=== PATIENT | male | born 1965 | race Caucasian/White ===

== ENCOUNTER 2019-12-18 12:07 | Emergency (ER) | payer BC ==
[2019-12-18 12:12] VITALS: BP 135/78; PULSE 110; RESP 18; TEMP 98.2
[2019-12-18] MEDS ORDERED: MORPHINE SULFATE 4 MG/ML SYRINGE IV STA (12:32)
[2019-12-18] MEDS ORDERED: KETOROLAC 30 MG/ML 1 ML VIAL IVP STA (12:32)
[2019-12-18 13:13] LABS: Basophils % (A) 0 %; Eosinophils # (A) 0.2 k/uL (0-0.7); Eosinophils % (A) 2 %; HCT 42.3 % (39.0-53.0); HGB 13.8 gm/dL (13.0-17.5); Lymphocytes # (A) 0.9 k/uL (1.0-4.8); Lymphocytes % (A) 9 %; MCH 28.3 pg (25.0-35.0); MCHC 32.6 g/dL (31.0-37.0); MCV 86.8 fL (80.0-100.0); Mean Platelet Volume 8.1; Monocytes # (A) 0.4 k/uL (0-1.0); Monocytes % (A) 3 %; Neutrophils # (A) 9.1 k/uL (1.3-7.7); Neutrophils % (A) 85 %; Platelet Count 252 k/uL (150-450); RBC 4.88 m/uL (4.30-5.90); RDW 13.7 % (11.5-15.5); WBC 10.7 k/uL (3.8-10.6)
[2019-12-18 13:21] LABS: ALT 51 U/L (4-49); AST 52 U/L (17-59); African American GFR (CKD) >90 (>60 ml/min/1.73 sqM); Albumin 4.1 g/dL (3.5-5.0); Alkaline Phosphatase 51 U/L (38-126); Anion Gap 12 mmol/L; Blood Urea Nitrogen 15 mg/dL (9-20); Calcium 9.2 mg/dL (8.4-10.2); Carbon Dioxide 24 mmol/L (22-30); Chloride 94 mmol/L (98-107); Glucose 280 mg/dL (74-99); Magnesium 1.7 mg/dL (1.6-2.3); Non-African American GFR(CKD) >90 (>60 ml/min/1.73 sqM); Partial Thromboplastin Time 23.1 sec (22.0-30.0); Potassium 4.2 mmol/L (3.5-5.1); Prothrombin Time 10.3 sec (9.0-12.0); Sodium 130 mmol/L (137-145); Total Bilirubin 0.9 mg/dL (0.2-1.3); Total Protein 7.6 g/dL (6.3-8.2)
--- NOTE | 2019-12-18 13:41 | ED ---
Back Pain HPI - General Chief Complaint: Back Pain/Injury Stated Complaint: Back pain Time Seen by Provider: 12/18/19 12:13 Source: patient, RN notes reviewed, old records reviewed Limitations: no limitations - History of Present Illness Initial Comments: Patient is a 54-year-old male presents emergency department today with progressive back pain from his lumbar spine for work that he's had some occasional weakness in his lower extremity's. He denies any saddle anesthesias or changes in urination. Reports the pain is worse with movement. He states that over the past few days the pain is so bad that it causes him to see spots and then blacked out. Patient denies any chest pain or shortness of breath. Patient reports that previously he is seen Dr. Willard in regards to his back pain. Patient states that he has not seen him in many months. He's been taking Motrin and occasional gabapentin for pain. - Related Data Previous Rx's Medication Instructions Recorded Cyclobenzaprine [Flexeril] 10 mg PO TID #12 tab 12/18/19 Dexamethasone 0.75 mg PO DAILY #12 tab 12/18/19 HYDROcodone/APAP 5-325MG [[place] 1 - 2 tab PO Q6HR PRN #12 tab 12/18/19 5-325] Allergies Allergy/AdvReac Type Severity Reaction Status Date / Time No Known Allergies Allergy Verified 12/18/19 12:12 Review of Systems ROS Statement: Those systems with pertinent positive or pertinent negative responses have been documented in the HPI. ROS Other: All systems not noted in ROS Statement are negative. Past Medical History Past Medical History: Diabetes Mellitus, Hypertension, Thyroid Disorder History of Any Multi-Drug Resistant Organisms: None Reported Past Surgical History: Back Surgery Past Psychological History: ADD/ADHD, Depression Smoking Status: Never smoker Past Alcohol Use History: None Reported Past Drug Use History: None Reported General Exam - General Exam Comments Initial Comments: 54-year-old male. Alert and oriented 3. Patient is morbidly obese. Limitations: no limitations General appearance: alert, in no apparent distress Head exam: Present: atraumatic, normocephalic, normal inspection Eye exam: Present: normal appearance, PERRL, EOMI. Absent: scleral icterus, conjunctival injection, periorbital swelling ENT exam: Present: normal exam, mucous membranes moist Neck exam: Present: normal inspection. Absent: tenderness, meningismus, lymphadenopathy Respiratory exam: Present: normal lung sounds bilaterally. Absent: respiratory distress, wheezes, rales, rhonchi, stridor Cardiovascular Exam: Present: regular rate, normal rhythm, normal heart sounds. Absent: systolic murmur, diastolic murmur, rubs, gallop, clicks GI/Abdominal exam: Present: soft, normal bowel sounds. Absent: distended, tenderness, guarding, rebound, rigid Extremities exam: Present: normal inspection, full ROM, normal capillary refill. Absent: tenderness, pedal edema, joint swelling, calf tenderness Back exam: Present: normal inspection Course Vital Signs 12/18/19 12:09 Temperature 98.2 F Pulse Rate 110 H Respiratory 18 Rate Blood Pressure 135/78 O2 Sat by Pulse 99 Oximetry Medical Decision Making - Medical Decision Making Patient is a 54 year old male with months of progressive back pain. Patient reports radiation down the legs, and denies saddle anesthesia. He mentioned with certain movements the pain is so severe that patient "Blacks out". Patient had full evaluation, including EKG and troponin which are negative. He has lumbar spine CT showing degenerative changes and likely disc herniation. PAtientinformed of these results. On reeval, patient is ambulatory to bathroom, full ROM of legs. Patient advised to follow up with PCP and ortho. Discussed strict return parameters. - Lab Data Result diagrams: 12/18/19 13:00 12/18/19 13:00 Lab Results 12/18/19 12/18/19 12/18/19 Range/Units 13:00 13:00 13:00 WBC 10.7 H (3.8-10.6) k/uL RBC 4.88 (4.30-5.90) m/uL Hgb 13.8 (13.0-17.5) gm/dL Hct 42.3 (39.0-53.0) % MCV 86.8 (80.0-100.0) fL MCH 28.3 (25.0-35.0) pg MCHC 32.6 (31.0-37.0) g/dL RDW 13.7 (11.5-15.5) % Plt Count 252 (150-450) k/uL Neutrophils % 85 % Lymphocytes % 9 % Monocytes % 3 % Eosinophils % 2 % Basophils % 0 % Neutrophils # 9.1 H (1.3-7.7) k/uL Lymphocytes # 0.9 L (1.0-4.8) k/uL Monocytes # 0.4 (0-1.0) k/uL Eosinophils # 0.2 (0-0.7) k/uL Basophils # 0.0 (0-0.2) k/uL PT 10.3 (9.0-12.0) sec INR 1.0 (<1.2) APTT 23.1 (22.0-30.0) sec Sodium 130 L (137-145) mmol/L Potassium 4.2 (3.5-5.1) mmol/L Chloride 94 L (98-107) mmol/L Carbon Dioxide 24 (22-30) mmol/L Anion Gap 12 mmol/L BUN 15 (9-20) mg/dL Creatinine 0.75 (0.66-1.25) mg/dL Est GFR (CKD-EPI)AfAm >90 (>60 ml/min/1.73 sqM) Est GFR (CKD-EPI)NonAf >90 (>60 ml/min/1.73 sqM) Glucose 280 H (74-99) mg/dL Calcium 9.2 (8.4-10.2) mg/dL Magnesium 1.7 (1.6-2.3) mg/dL Total Bilirubin 0.9 (0.2-1.3) mg/dL AST 52 (17-59) U/L ALT 51 H (4-49) U/L Alkaline Phosphatase 51 (38-126) U/L Troponin I (0.000-0.034) ng/mL Total Protein 7.6 (6.3-8.2) g/dL Albumin 4.1 (3.5-5.0) g/dL 12/18/19 Range/Units 13:00 WBC (3.8-10.6) k/uL RBC (4.30-5.90) m/uL Hgb (13.0-17.5) gm/dL Hct (39.0-53.0) % MCV (80.0-100.0) fL MCH (25.0-35.0) pg MCHC (31.0-37.0) g/dL RDW (11.5-15.5) % Plt Count (150-450) k/uL Neutrophils % % Lymphocytes % % Monocytes % % Eosinophils % % Basophils % % Neutrophils # (1.3-7.7) k/uL Lymphocytes # (1.0-4.8) k/uL Monocytes # (0-1.0) k/uL Eosinophils # (0-0.7) k/uL Basophils # (0-0.2) k/uL PT (9.0-12.0) sec INR (<1.2) APTT (22.0-30.0) sec Sodium (137-145) mmol/L Potassium (3.5-5.1) mmol/L Chloride (98-107) mmol/L Carbon Dioxide (22-30) mmol/L Anion Gap mmol/L BUN (9-20) mg/dL Creatinine (0.66-1.25) mg/dL Est GFR (CKD-EPI)AfAm (>60 ml/min/1.73 sqM) Est GFR (CKD-EPI)NonAf (>60 ml/min/1.73 sqM) Glucose (74-99) mg/dL Calcium (8.4-10.2) mg/dL Magnesium (1.6-2.3) mg/dL Total Bilirubin (0.2-1.3) mg/dL AST (17-59) U/L ALT (4-49) U/L Alkaline Phosphatase (38-126) U/L Troponin I <0.012 (0.000-0.034) ng/mL Total Protein (6.3-8.2) g/dL Albumin (3.5-5.0) g/dL 12/18/19 14:29 EKG performed at 1246 shows normal sinus rhythm with axis deviation. Septal infarct. [place] rate of 95 bpm. Was 166 ms. QS duration is 96 most seconds. QT QTC 370/464. - Radiology Data Radiology results: report reviewed Multilevel spinal canal stenosis, neural foramina narrowing ranging from mild to severe. Possible disc herniation about without BE more accurately assessed withMRI. Minimal retrolisthesis of L5 on S1 on degenerative basis . Disposition Clinical Impression: Lumbar degenerative disc disease, Lumbar disc herniation Disposition: HOME SELF-CARE Condition: Good Instructions (If sedation given, give patient instructions): Acute Low Back Pain (ED) Additional Instructions: Patient is to take the antiinflammatory medication and the pain medication as prescribed. Follow-up with the back specialist referral. Return to ED if any alarming signs or symptoms occur. Prescriptions: Dexamethasone 0.75 mg PO DAILY #12 tab Cyclobenzaprine [Flexeril] 10 mg PO TID #12 tab HYDROcodone/APAP 5-325MG [[place] 5-325] 1 - 2 tab PO Q6HR PRN #12 tab PRN Reason: Pain Is patient prescribed a controlled substance at d/c from ED?: Yes If prescribed controlled substance>3 days was MAPS reviewed?: Prescribed <3 Days If opioid is for acute pain is fill amount 7 days or less?: Yes If Rx opioid, was Start Talking consent form obtained?: Yes Referrals: Camron Spears MD [Primary Care Provider] - 1-2 days Time of Disposition: 15:27
--- NOTE | 2019-12-18 14:07 | XR ---
EXAMINATION TYPE: XR chest 2V DATE OF EXAM: 12/18/2019 COMPARISON: NONE HISTORY: Chest pain TECHNIQUE: Frontal and lateral views of the chest are obtained. FINDINGS: Markedly limited evaluation given patient body habitus despite multiple attempts. Cardiome diastinal silhouette is enlarged. Costophrenic angles are not well evaluated. No sizable pneumothorax or pleural effusion. Lateral view is nearly nondiagnostic. Osseous structures are suboptimally seen. IMPRESSION: Markedly limited exam given patient body habitus. Lateral view is nearly nondiagnostic. Enlarged cardiomediastinal silhouette with no focal consolidation seen.
--- NOTE | 2019-12-18 14:21 | CT ---
EXAMINATION TYPE: CT lumbar spine wo con DATE OF EXAM: 12/18/2019 1:53 PM COMPARISON: None HISTORY: low back pain and radiculopathy CT DLP: 3277.4 mGycm Automated exposure control for dose reduction was used. TECHNIQUE: Unenhanced CT of the lumbar spine was performed. Bone and soft tissue window settings are submitted as well as coronal and sagittal reconstructions. FINDINGS: The lumbar spine vertebral bodies maintain normal vertebral body heights. Minimal retrolist hesis of L5 on S1 is seen. Multilevel facet arthropathy, posterior osteophytes, anterior osteophytes, and intervertebral disc space narrowing are seen. Vacuum discs none at L5-S1. Hypoattenuation of the visualized hepatic parenchyma typically relates to hepatic steatosis. Only minimal amount of hepatic parenchyma is seen however. L1-L2: Right eccentric disc bulge or right foraminal disc herniation seen. This would be better evalu ated with MRI. At least mild right neural foraminal narrowing. Spinal canal is grossly patent on CT. L2-L3: Posterior projecting osteophyte is seen with a broad-based disc bulge and facet arthropathy cr eating at least mild spinal canal stenosis. There is also ligamentum flavum buckling. Moderate to sev ere right and mild left neural foraminal narrowing. L3-L4: Left foraminal disc herniation or left eccentric broad-based disc bulge creates at least moder ate left neural foraminal narrowing. There is moderate to severe right neural foraminal narrowing as well secondary to facet arthropathy. At least moderate spinal canal stenosis. L4-L5: Posterior projecting osteophyte, broad-based disc bulge, and facet arthropathy result in moder ate to severe bilateral neural foraminal narrowing and moderate spinal canal stenosis. L5-S1: Broad-based disc bulge, posterior disc osteophyte complex, and facet arthropathy result in rosalino ateral moderate to severe neural foraminal narrowing and mild spinal canal stenosis. IMPRESSION: Multilevel spinal canal stenosis, neural foraminal narrowing ranging from mild to severe, and possibl e disc herniations as detailed above without BE more accurately assessed with MRI. Minimal retrolisth esis of L5 on S1 is likely on a degenerative basis.
== END 2019-12-18 15:48 | disposition home or self-care (01) ==
LOC: EC 12:07
DX: M51.26 Other intervertebral disc displacement, lumbar region (principal); M51.36 Other intervertebral disc degeneration, lumbar region
CPT/HCPCS: 36415; 93005; 80053; 83735; 84484; 85025; 85610; 85730; 71046; 72131; 96374; 96375; 99284; J2270; J1885

== ENCOUNTER → 2020-02-16 | Outpatient (CLI) | payer BC ==
[2020-02-16 14:19] VITALS: BP 135/80; PULSE 100; RESP 18
--- NOTE | 2020-02-16 15:07 | P.PAINCN ---
History of Present Illness - Reason for Consult Consult date: 02/16/20 - History of Present Illness This is a 54-year-old patient referred by Dr. Amezcua with a chief complaint of chronic pain in bilateral low back without radiation. Patient has a history of left hemilaminectomy at L3-4 done in 1998. He was doing well after that. Since July 2019 he has noticed low back pain, which has been gradually worsening. Pain is rated as 5-9/10. Pain is located in the lumbar spine at the belt line, radiating across the lumbar paraspinal muscles bilaterally. Pain is described as constant, stabbing, throbbing. Pain is worse with standing and sitting for long periods of time, better with lying down. His medications include [place] and Flexeril, which helped take the edge off. He has mild side effects in the form of fatigue. He has had epidural steroid injections done approximately 3 years ago at [facility] which helped for a few months at a time. Of note, he does not have significant lower extremity pain. He has not had physical therapy recently. He does report weakness in the form of leg buckling and long-standing numbness in right lower extremity.. Patient denies new-onset weakness, bowel/bladder incontinence, or any other signs or symptoms of cauda equina syndrome. There are no signs of acute intoxication, and no indications of medication diversion or overuse. In addition to above, 13-point review of systems is also negative for chest pa in, shortness of breath, changes in vision, changes in hearing, new onset weakness, abdominal pain, diarrhea, extreme fatigue, malaise, fever, skin changes, homicidal or suicidal ideation, or bowel or bladder incontinence. Physical exam: Vital Signs: Reviewed in EMR GENERAL: Well appearing, in no acute distress, morbidly obese, wheelchair the side PSYCH: Mood and affect is appropriate. Awake, alert, and oriented SKIN: Skin color, texture, turgor normal, no rashes or lesions HEENT: Normocephalic, atraumatic. EOM intact CV: No pedal edema RESP: Respirations are unlabored, no audible wheezing GI: Abdomen obese MUSCULOSKELETAL: Bilateral lower extremity strength is 4/5 throughout and symmetric. No atrophy or tone abnormalities are noted. Lumbar spine: Surgical scar over her lumbar spine well healed. Straight leg raising in the sitting position is negative for radicular pain. Tenderness to palpation over the lumbar spine and paraspinous muscles bilaterally. Positive for pain with facet loading bilaterally Buttocks: No pain to palpation over the PSIS Extremities: Peripheral joint ROM is full and pain free without obvious instability or laxity in all four extremities. No edema or skin discolorations noted. Gait: Gait is slow NEUR: Reduced sensation to light touch noted in anterior aspect of right leg . Cranial nerves are grossly intact. Imaging: CT lumbar spine without contrast done at [facility] on 12/18/2019 shows multilevel spinal canal stenosis, worse at L3-4 and L4-5 and multilevel neural foraminal narrowing ranging from mild to severe. MRI lumbar spine done at [facility] on 12/29/2019 shows mild to moderate multilevel lumbar spondylosis and facet arthrosis. Postsurgical change of left hemilaminectomy at L3-4. At L1-2 there is right posterior lateral annular tear and right extraforaminal disc protrusion. At L3-4 moderate left extraforaminal disc protrusion. Moderate spinal canal stenosis at L2-3 mild to moderate spinal canal stenosis at L4-5. Moderate spinal canal stenosis at L5-S1 Assessment: 1. Lumbar spondylosis without myelopathy 2. Lumbar degenerative disc disease 3. Lumbar spinal stenosis 4. Morbid obesity, BMI 55 Plan: 1. Explanation: Diagnoses, prognoses, and multiple treatment options including but not limited to physical therapy, interventional therapies, medication management and surgery were discussed with the patient and all questions were answered to the patient's satisfaction. 2. Investigations: MRI lumbar spine reviewed 3. Counseling: The patient was counseled on the importance of weight loss as it pertains to overall health and chronic pain. He is working on losing weight. 4. Procedures: We will schedule bilateral lumbar medial branch blocks at L2, L3, L4, L5 for facets L3-4, L4-5, L5-S1 5. Consultations: None 6. Medications: No changes 7. Disposition: For above-mentioned procedure Past Medical History Past Medical History: Diabetes Mellitus, Hypertension, Thyroid Disorder Additional Past Medical History / Comment(s): chronic back pain History of Any Multi-Drug Resistant Organisms: MRSA Year Discovered:: 2009 MDRO Source:: left axilla Past Surgical History: Back Surgery Past Anesthesia/Blood Transfusion Reactions: No Reported Reaction Smoking Status: Never smoker Medications and Allergies Home Medications Medication Instructions Recorded Confirmed Type Cyclobenzaprine [Flexeril] 10 mg PO TID #12 tab 12/18/19 02/16/20 Rx HYDROcodone/APAP 5-325MG [[place] 1 - 2 tab PO Q6HR PRN #12 tab 12/18/19 02/16/20 Rx 5-325] Levothyroxine Sodium [Synthroid] 50 mcg PO DAILY 02/16/20 02/16/20 History Lisinopril-Hctz 20-12.5 mg 12.5 mg PO DAILY 02/16/20 02/16/20 History [Zestoretic 20-12.5] Methylphenidate HCl [Ritalin] 20 mg PO BID 02/16/20 02/16/20 History sitaGLIPtin [Januvia] 100 mg DAILY 02/16/20 02/16/20 History Allergies Allergy/AdvReac Type Severity Reaction Status Date / Time strawberry Allergy Rash/Hives Verified 02/13/20 15:45 PQRS Measure Charge Sheet Measure #130: Documentation of Current Meds in Medical Chart: Patient's medications documented in chart Measure #226: Tobacco Use: Screen & Cessation Intervention: Pt not a tobacco user Measure #111: Pneumonia Vaccination: Pneumococcal vaccine NOT administered or previously given Measure #47: Advance Care Plan: Advance care planning discussed & documented, pt chose/unable to give Measure #412: Opioid Treatment Agreement: No documentation of signed opioid treatment agreement Measure #408: Opioid Therapy Follow-up Evaluation: Patient had NO f/u eval minimum every 3 months during opioid therapy Measure #317: Preventitive Care & Scrn High Bld Press & F/U: Normal blood pressure, f/u not required Measure #128: Body Mass Index (BMI) Screening & Follow-up: BMI documented ABOVE normal parameters - f/u documented Measure #131: Pain Assessment & Follow-up: Pain positive & plan documented, Follow-up scheduled Measure #431: Unhealthy Alcohol Use Preventative Care & Scrn: Patient not identified as an unhealthy alcohol user PQRS Narrative: Smoking Status Never smoker Pain Intensity [Back] 5 Scale Used Numeric (1 - 10) Home Medications: Ambulatory Orders Cyclobenzaprine [Flexeril] 10 mg PO TID #12 tab 12/18/19 HYDROcodone/APAP 5-325MG [[place] 5-325] 1 - 2 tab PO Q6HR PRN #12 tab 12/18/19 Levothyroxine Sodium [Synthroid] 50 mcg PO DAILY 02/16/20 Lisinopril-Hctz 20-12.5 mg [Zestoretic 20-12.5] 12.5 mg PO DAILY 02/16/20 Methylphenidate HCl [Ritalin] 20 mg PO BID 02/16/20 sitaGLIPtin [Januvia] 100 mg DAILY 02/16/20
== END | disposition home or self-care (01) ==
LOC: PNWHC3 13:45
PROVIDERS: ATTEND Anesthesiology
DX: M48.061 Spinal stenosis, lumbar region without neurogenic claudication (principal); M47.816 Spondylosis without myelopathy or radiculopathy, lumbar region; M51.36 Other intervertebral disc degeneration, lumbar region; E66.01 Morbid (severe) obesity due to excess calories; Z68.43 Body mass index [BMI] 50.0-59.9, adult; Z79.899 Other long term (current) drug therapy; Z79.890 Hormone replacement therapy; Z79.84 Long term (current) use of oral hypoglycemic drugs; Z91.018 Allergy to other foods; I10 Essential (primary) hypertension; E07.9 Disorder of thyroid, unspecified; E11.9 Type 2 diabetes mellitus without complications; Z98.890 Other specified postprocedural states
CPT/HCPCS: 99201

== ENCOUNTER 2020-02-23 06:47 | Day surgery (SDC) | payer BC ==
[2020-02-23] MEDS ORDERED: LACTATED RINGERS 1,000 ML IV SCH (07:30)
[2020-02-23 07:32] VITALS: TEMP 97
[2020-02-23] MEDS ORDERED: LIDOCAINE 1% (10MG/ML) FOR IV START INTRADERMA ONE (07:35)
[2020-02-23] MEDS ORDERED: MIDAZOLAM 2 MG/2 ML VIAL ONE (07:49)
[2020-02-23] MEDS ORDERED: IOPAMIDOL M200 10 ML VIAL ONE (07:49)
[2020-02-23] MEDS ORDERED: LIDOCAINE 4% (PF) 5 ML AMP ONE (07:49)
[2020-02-23 07:51] LABS: Glucose,Whole Blood 217 mg/dL (75-99)
--- NOTE | 2020-02-23 08:13 | P.PCN ---
Date of Procedure: 02/23/20 Procedure(s) Performed: PREOPERATIVE DIAGNOSIS : Lumbar spondylosis with Facet Arthropathy without myelopathy POSTOPERATIVE DIAGNOSIS: same PROCEDURE: First Diagnostic lumbar medial branch block with fluoroscopy at L2, L3, L4, L5 [bilateral] which covers facets L3-4, L4-5 and L5-S1 ANESTHESIA: Local anesthetic; moderate IV sedation with Versed 1 mg, sedation time 15 minutes Fluoroscopy was used for the procedure and images were saved in the radiology portion of the chart. Surgeon: Katherine Solano MD PROCEDURE INDICATION: Lumbar back pain without radiculopathy, not responsive to conservative management. PROCEDURE DESCRIPTION: the patient was seen and identified in the preop holding area , risks and benefits and possible complications of the procedure and alternatives were discussed with the patient, and the patient agreed to proceed with the procedure and signed the consent . IV was started , vital signs were monitored during the procedure and fluoroscopy was used to maximize the benefit and accuracy of the needle placement, and sedation was given to decrease patient anxiety. Patient was taken to the procedure room and placed in prone position. The lumbar region was prepped using chlorhexidineX-2. Under strict sterile technique using AP fluoroscopy the bilateral sacral ala were identified and using ipsilateral oblique fluoroscopy ,the junction of the transverse process and the superior articulating process of the L3, L4, L5 vertebra which corresponds to the fluoroscopy image of the eye of the [place] dog for the medial branches were identified. Subsequently, after local infiltration of skin with lidocaine 1% 0.2 mL at each level , a 22-gauge 5 inch Quincke-type needle was placed at the junction of the base of the transverse process and the superior articular process at the appropriate level as well as the sacral ala, and the needle was advanced until the periosteum contacted, needle placement confirmed with AP and oblique fluoroscopy, 0.2 mL of Isovue 200 per level was injected which revealed no vascular uptake and after negative aspiration, 0.5 mL of [lidocaine 4%] was injected at each level and the needle subsequently removed . At the end of the procedure and the needles were removed and a bandage applied after the skin was cleaned. The patient was taken to recovery room in stable condition and monitors in the recovery room for 20-30 minutes and discharged home in stable condition after discharge criteria met and patient will follow up in clinic in 2 weeks EBL: Minimal COMPLICATION: None.
[2020-02-23] MEDS ORDERED: IV FLUID CONTINUATION 1,000 ML IV ONE (08:18)
[2020-02-23 08:28] VITALS: RESP 16
[2020-02-23 08:35] VITALS: BP 113/72; PULSE 81
--- NOTE | 2020-02-23 09:01 | FL ---
Fluoroscopy HISTORY: Pain 5 seconds fluoroscopy time supplied to the referring clinician. 3 intraoperative C-arm images docume nt the procedure. See dictated report from anesthesia.
== END 2020-02-23 08:44 | disposition home or self-care (01) ==
LOC: ORPAIN 06:47
PROVIDERS: ATTEND Anesthesiology
DX: G89.29 Other chronic pain (principal); M47.816 Spondylosis without myelopathy or radiculopathy, lumbar region; M51.36 Other intervertebral disc degeneration, lumbar region; M48.061 Spinal stenosis, lumbar region without neurogenic claudication; I10 Essential (primary) hypertension; E66.01 Morbid (severe) obesity due to excess calories; E11.9 Type 2 diabetes mellitus without complications; E07.9 Disorder of thyroid, unspecified; Z86.14 Personal history of Methicillin resistant Staphylococcus aureus infection; Z79.84 Long term (current) use of oral hypoglycemic drugs; Z79.890 Hormone replacement therapy; Z79.899 Other long term (current) drug therapy; Z91.018 Allergy to other foods; Z68.43 Body mass index [BMI] 50.0-59.9, adult
CPT/HCPCS: 64493; 64494; 64495; J2001; J2250; Q9966; 99152

== ENCOUNTER 2020-03-13 12:50 | Day surgery (SDC) | payer BC ==
[2020-03-08 10:03] VITALS: BMI 56.9
[2020-03-13 13:17] VITALS: TEMP 97
[2020-03-13] MEDS ORDERED: LACTATED RINGERS 1,000 ML IV ONE (13:19)
[2020-03-13] MEDS ORDERED: IOPAMIDOL M200 10 ML VIAL ONE (13:31)
[2020-03-13] MEDS ORDERED: MIDAZOLAM 2 MG/2 ML VIAL ONE (13:31)
[2020-03-13] MEDS ORDERED: ROPIVACAINE 5MG/ML 20ML VIAL ONE (13:31)
[2020-03-13] MEDS ORDERED: LIDOCAINE 1% INJ 10MG/ML (20 ML MDV) ONE (13:31)
[2020-03-13] MEDS ORDERED: LACTATED RINGERS 1,000 ML IV SCH (13:55)
[2020-03-13] MEDS ORDERED: IV FLUID CONTINUATION 800 ML IV ONE (14:01)
[2020-03-13 14:06] VITALS: RESP 16
[2020-03-13 14:20] VITALS: BP 110/61; PULSE 89
--- NOTE | 2020-03-13 14:36 | FL ---
EXAMINATION TYPE: FL guided pain mgmt statistic DATE OF EXAM: 03/13/2020 CLINICAL HISTORY: Low back pain. TECHNIQUE: Fluoroscopy. COMPARISON: None. FINDINGS: Fluoroscopic guidance was provided during pain relief procedure performed by Dr. Teresa . A total of 18 seconds of fluoroscopic time was utilized during the procedure and 3 spot images are a cquired. Images acquired shows needle localization at several levels in the lower lumbar spine. IMPRESSION: As Above.
--- NOTE | 2020-03-13 14:41 | P.PCN ---
Date of Procedure: 03/13/20 Description of Procedure: PREOPERATIVE DIAGNOSIS : Lumbar spondylosis with Facet Arthropathy without myelopathy POSTOPERATIVE DIAGNOSIS: same PROCEDURE: [first/second] Diagnostic lumbar medial branch block with fluoroscopy at L2, L3, L4, L5 [bilateral] which covers facets L3-4, L4-5 and L5- S1 ANESTHESIA: Local anesthetic; moderate IV sedation with Versed sedation time 17 min Fluoroscopy was used for the procedure and images were saved in the radiology portion of the chart. Surgeon: Alex Teresa MD PROCEDURE INDICATION: Lumbar back pain without radiculopathy, not responsive to conservative management. PROCEDURE DESCRIPTION: the patient was seen and identified in the preop holding area , risks and benefits and possible complications of the procedure and alternatives were discussed with the patient, and the patient agreed to proceed with the procedure and signed the consent . IV was started , vital signs were monitored during the procedure and fluoroscopy was used to maximize the benefit and accuracy of the needle placement, and sedation was given to decrease jenny ent anxiety. Patient was taken to the procedure room and placed in prone position. The lumbar region was prepped using chlorhexidineX-2. Under strict sterile technique using AP fluoroscopy the bilateral sacral ala were identified and using ipsilateral oblique fluoroscopy ,the junction of the transverse process and the superior articulating process of the L3 L4, L5 vertebra which corresponds to the fluoroscopy image of the eye of the [place] dog for the medial branches were identified. Subsequently, after local infiltration of skin with lidocaine 1% 0.2 mL at each level , a 22-guage 5" Quincke-type needle was placed at the junction of the base of the transverse process and the superior articular process at the appropriate level as well as the sacral ala, and the needle was advanced until the periosteum contacted, needle placement confirmed with AP and oblique fluoroscopy, 0.2 mL of Isovue 200 per level was injected which revealed no vascular uptake and after negative aspiration, 1mL of ropivacaine 0.5% was injected at each level and the needle subsequently removed . At the end of the procedure and the needles were removed and a bandage applied after the skin was cleaned. The patient was taken to recovery room in stable condition and monitors in the recovery room for 20-30 minutes and discharged home in stable condition after discharge criteria met and patient will follow up in clinic in 2 weeks EBL: Minimal COMPLICATION: None.
[2020-03-14 14:05] LABS: Glucose,Whole Blood 175 mg/dL (75-99)
== END 2020-03-13 14:25 | disposition home or self-care (01) ==
LOC: ORPAIN 12:50
PROVIDERS: ATTEND Anesthesiology
DX: M47.816 Spondylosis without myelopathy or radiculopathy, lumbar region (principal)
CPT/HCPCS: 64493; 64494; 64495; J2250; J2001; Q9966; J2795; 99152

== ENCOUNTER → 2020-03-28 | Outpatient (CLI) | payer BC ==
[2020-03-28 08:29] VITALS: BP 137/94; PULSE 103; RESP 18
[2020-03-28 08:39] VITALS: TEMP 98.9
--- NOTE | 2020-03-30 18:55 | P.PN ---
Subjective Progress Note Date: 03/28/20 This is a follow-up visit for this 55 years old male with a history of severe low back pain,he is diagnosed with lumbar degenerative disc disease, lumbar spondylosis with lumbar facet arthropathy, and failed back surgery syndrome and lumbar area, recently we have done diagnostic medial branch block lumbar area 2, the first diagnostic blockade reported that his pain was 6/10 dropped to 3/10 for short period of time, and the second diagnostic block his VAS was 5/10 and increased after the block to 7/10, patient continued to use Flexeril 10 mg 3 times a day and Holt[place] 5/325 every 6 hours when necessary is getting prescription refills from his primary care, he denies any side effect of the medication Objective - Vital Signs Vital signs: Vital Signs Temp 98.9 F 03/28/20 08:26 Pulse 103 H 03/28/20 08:26 Resp 18 03/28/20 08:26 BP 137/94 03/28/20 08:26 Pulse Ox 94 L 03/28/20 08:26 - Exam Physical Examinations : -Constitutiona : Cooperative , not in acute distress . -HEENT : nech : supple , no Lymphadenopathy , normal thyroid size . : eyes : no ptosis , no icterus, no photopho alfredo . - neurologic : Cranial nerve II to XII intact , no focal neurological deffecit . -psychatric : alert , oriented X 3 , appropriate affect , intact judgment and insight . -Lymphatic : no Lymphadenopathy . - musculoskeltal : Lumber spine moter stegnth lower extremities ,thigh and legs 4/5 Right side , 4/5 Left side Griese sensation anterior lateral aspect of right lower extremity deep tendon reflexes : normal Knee Jerk , normal ankle Jerk lumber facet Loading Test =positive Right , positive Left Range of motion of the lumbar spine Flexion 30 degrees, extension 10 degrees strait leg raising test = negative bilaterally Fabere test= positive Right , and positive LT . tenderness over the Sacroiliac joint on the Right , and Left sides Assessment and Plan Plan: Assessment and plan=1-failed back surgery syndrome number area 2-lumbar spondylosis with lumbar facet arthropathy without myelopathy. 4-lumbar degenerative disc disease. Patient had negative result after diagnostic med ial branch block lumbar areax2 , for this reason he is not taking good candidate to have RFA of the medial branch lumbar area. Patient could benefit from caudal epidural steroid injection with lysis of epidural adhesions under fluoroscopy guidance. Patient should continue his current medications Flexeril and [place] as prescribed by his primary care. - PQRS measures = - Patient's medications are documented in the chart. -Tobacco use is negative and counseling.Given. -Patient's has not received pneumococcal vaccine. -Advanced care planning discussed, patient not eligible. -Opiate contract signed. -Pain positive and follow-up visit/procedure is scheduled. -Patient's blood pressure measured , and documented in the record ,and patient will follow up with the primary care. -Patient's weight was measured and body mass index , above the normal limits and counseling was done. and patient instructed to follow-up with the primary care physician. -Patient was not identified as an unhealthy alcohol user Time with Patient: Less than 30
== END | disposition home or self-care (01) ==
LOC: PNWHC3 08:19
PROVIDERS: ATTEND Specialist
DX: G89.29 Other chronic pain (principal); M51.36 Other intervertebral disc degeneration, lumbar region; M47.816 Spondylosis without myelopathy or radiculopathy, lumbar region; M96.1 Postlaminectomy syndrome, not elsewhere classified
CPT/HCPCS: 99211

== ENCOUNTER 2020-04-10 10:00 | Day surgery (SDC) | payer BC ==
[2020-04-06 11:23] VITALS: BMI 56.1
[~2020-04-10 10:00] MED LIST: LACTATED RINGERS 1,000 ML IV SCH
[2020-04-10 10:25] VITALS: PULSE 74; RESP 16; TEMP 97.8
[2020-04-10 10:37] LABS: Glucose,Whole Blood 176 mg/dL (75-99)
[2020-04-10] MEDS ORDERED: LIDOCAINE 1% (10MG/ML) FOR IV START INTRADERMA ONE (10:37)
[2020-04-10] MEDS ORDERED: IOPAMIDOL M200 10 ML VIAL ONE (11:23)
[2020-04-10] MEDS ORDERED: ROPIVACAINE 5MG/ML 20ML VIAL ONE (11:23)
[2020-04-10] MEDS ORDERED: TRIAMCINOLONE ACETONIDE 40 MG/ML 1 ML VIAL ONE (11:23)
[2020-04-10] MEDS ORDERED: MIDAZOLAM 2 MG/2 ML VIAL ONE (11:23)
[2020-04-10] MEDS ORDERED: fentaNYL (PF) 50 MCG/ML 2 ML AMP ONE (11:23)
--- NOTE | 2020-04-10 11:50 | P.PCN ---
Date of Procedure: 04/10/20 Surgeon: Alia Guillen Pathology: none sent Condition: stable Disposition: PACU Description of Procedure: PREOP DIAGNOSIS: Lumbar postlaminectomy syndrome. Morbid obesity POSTOP DIAGNOSIS: Lumbar postlaminectomy syndrome, morbid obesity PROCEDURE: Caudal epidural steroid injection with epidurolysis and epidurogram under fluoroscopic guidance ANESTHESIA: Local with 1% lidocaine; IV moderate conscious sedation with 1 mg of Versed and 50 g of fentanyl EBL: Minimal. PROCEDURE INDICATION: The patient with post-laminectomy syndrome with low back pain and radiculopathy radiating down in both legs, here for a caudal epidural steroid injection with epidurolysis. PROCEDURE DESCRIPTION: The patient was seen in the preoperative holding area consent was obtained then he was brought into the procedure room and placed in prone position. Skin was prepped with ChloraPrep and draped in a sterile manner. Lidocaine 1% was used to numb the skin up at the target point that was chosen as follows: The lateral view of fluoroscopy was used to identify the sacral hiatus and then after localizing the skin with lidocaine 1% I used 18- gauge epidural needle with a plastic sheath to go through the sacral hiatus and into the sacral canal and then injected 1 mL of Omnipaque for verification of needle tip position. After that the metal core of the needle was taken out and the plastic sheath was kept in the sacral canal. Then Racz catheter was introduced through the plastic sheath and into the epidural space at the sacral canal using the AP view of fluoroscopy up to L5-S1 level then I injected 2 MLS of Omnipaque which showed spread in the epidural space and after few back and forth movements of the Racz catheter I injected 40 mg of Kenalog +2 MLS of Ropivacaine 0.5% +7 MLS of preservative-free normal saline to a total volume of 10 MLS in the epidural space. Patient tolerated procedure well. A copy of the needle placement x-ray was saved to the C-arm machine. COMPLICATIONS: None. DISPOSITION / PLANS: The patient was placed in a supine position and transferred to the recovery area in a stable condition for observation and was discharged from the recovery room after meeting discharge criteria. Home discharge instructions given to the patient by the staff. The patient was reexamined prior to discharge. The patient will schedule a follow up in the clinic in 2-4 weeks.
[2020-04-10] MEDS ORDERED: IV FLUID CONTINUATION 1,000 ML IV ONE (11:52)
[2020-04-10 12:13] VITALS: BP 119/74
--- NOTE | 2020-04-10 12:23 | FL ---
Fluoroscopy HISTORY: Pain 34 seconds fluoroscopy time supplied to the referring clinician. 2 intraoperative C-arm images docum ent the procedure. See dictated report from anesthesia.
--- NOTE | 2020-04-12 09:38 | CDI ---
Date: 04.12.2020 CDS/[employer] Name: Daniela Bahena Phone: If any questions, call Balbina Castellanos Self Pay Specialist at [phone] Patient Name: Brandon Mike Admit Date 04.10.20 Discharge Date: 04.10.20 ATTENTION: The [facility] Coding Staff appreciate your assistance in clarifying documentation. Please respond to the clarification below the line at the bottom and electronically sign. The [facility] Coding staff will review the response and follow-up if needed. Please note: Queries are made part of the Legal Health Record. If you have any questions, please contact the Self Pay Specialist. Dear Dr. Guillen In order to code to the greatest specificity and for the greatest reimbursement I need the following information: In your OP note you have documented for anesthesia given was IV moderate sedation but on the anesthesia sheet it is documented that MAC was given. Please clarify which sedation was used. __moderate sedation __MAC Thank you for your kind consideration. MTDD
== END 2020-04-10 12:16 | disposition home or self-care (01) ==
LOC: ORPAIN 10:00
PROVIDERS: ATTEND Anesthesiology
DX: M96.1 Postlaminectomy syndrome, not elsewhere classified (principal); M54.10 Radiculopathy, site unspecified; G97.1 Other reaction to spinal and lumbar puncture; E66.01 Morbid (severe) obesity due to excess calories; E11.9 Type 2 diabetes mellitus without complications; G47.33 Obstructive sleep apnea (adult) (pediatric); Z68.43 Body mass index [BMI] 50.0-59.9, adult; Z79.4 Long term (current) use of insulin; Z91.018 Allergy to other foods
CPT/HCPCS: 62264; J2250; J3301; J3010; Q9966; J2795; C1894; 99152

== ENCOUNTER 2020-04-26 06:44 | Day surgery (SDC) | payer BC ==
[2020-04-24 12:03] VITALS: BMI 56.1
[2020-04-26] MEDS ORDERED: LIDOCAINE 1% (10MG/ML) FOR IV START INTRADERMA ONE (07:20)
[2020-04-26 07:25] VITALS: TEMP 97.6
[2020-04-26 07:25] LABS: Glucose,Whole Blood 169 mg/dL (75-99)
[2020-04-26] MEDS ORDERED: MIDAZOLAM 2 MG/2 ML VIAL ONE (08:15)
[2020-04-26] MEDS ORDERED: SODIUM CHLORIDE 0.9% (PF) 10 ML VIAL ONE (08:15)
[2020-04-26] MEDS ORDERED: fentaNYL (PF) 50 MCG/ML 2 ML AMP ONE (08:15)
[2020-04-26] MEDS ORDERED: methylPREDNISolone ACETATE 40 MG/ML 1 ML VIAL ONE (08:15)
[2020-04-26] MEDS ORDERED: IOPAMIDOL M200 10 ML VIAL ONE (08:15)
--- NOTE | 2020-04-26 08:37 | P.PCN ---
Date of Procedure: 04/26/20 Procedure(s) Performed: PREOPERATIVE DIAGNOSIS: Lumbar post laminectomy syndrome. POSTOPERATIVE DIAGNOSIS: Lumbar post laminectomy syndrome. PROCEDURE: 1. Caudal epidural steroid injection under fluoroscopic guidance. (Fluoroscopy images available in the radiology department ) 2. Caudal epidurogram ANESTHESIA: Local with 1% lidocaine; 5ml for subcutaneous infiltrations and IV versed 3 mg ,and fentanyl 100 mcg EBL: None. PROCEDURE INDICATION: The patient with neuropathic pain radiating distally returns for caudal epidural steroid injection. PROCEDURE DESCRIPTION: The patient was seen and identified in the preoperative area. Risks, benefits, complications, and alternatives were discussed with the patient. The patient agreed to proceed with the procedure and signed the consent. IV was started, and vital signs were stable. Patient was taken to the OR and time out was completed. The patient was placed in the prone position on procedure table and a pillow was placed under the abdomen to reduce lumbar lordosis. The lumbosacral area was prepped and draped in the usual sterile fashion. Critical pause was taken. Vital signs were closely monitored during the procedure. Using lateral fluoroscopy the anterior-posterior plates of the sacrum were identified and the skin and deeper tissues corresponding into sacrococcygeal ligament were anesthetized using approximately 3 mL of 1% lidocaine. Then under fluoroscopy, a 3-1/2-inch 20-gauge Tuohy epidural needle was guided through the sacrococcygeal ligament, and into the epidural space. After negative aspiration, a 2 mL of Isovue 200 contrast dye was injected with excellent epidurogram. Again after negative aspiration for CSF, blood, and with no paresthesias, then Depo-Medrol 40mg, 2ml of 1% preservative free Lidocaine with 6 ml of preservative free normal saline(total of 10ml)solution was injected with washout of epidurogram. Needle was withdrawn intact. Skin was cleansed, and bandage was applied. COMPLICATIONS: None DISPOSITION / PLANS: The patient was placed in a supine position and transferred to the recovery area in a stable condition for observation and was discharged from the recovery room after meeting discharge criteria. Home discharge instructions given to the patient by the staff. The patient was reexamined prior to discharge. The patient will schedule a follow up in the clinic in 2-4 weeks.
[2020-04-26] MEDS ORDERED: IV FLUID CONTINUATION 500 ML IV ONE (08:41)
[2020-04-26 08:44] VITALS: RESP 18
--- NOTE | 2020-04-26 08:46 | FL ---
Fluoroscopy History: Caudal epi 17 sec fl time used caudal epi
[2020-04-26 08:47] LABS: Glucose,Whole Blood 164 mg/dL (75-99)
[2020-04-26 08:57] VITALS: BP 98/62; PULSE 77
== END 2020-04-26 09:12 | disposition home or self-care (01) ==
LOC: ORPAIN 06:44
PROVIDERS: ATTEND Specialist
DX: M96.1 Postlaminectomy syndrome, not elsewhere classified (principal); Z91.018 Allergy to other foods
CPT/HCPCS: 62323; J2250; J1030; J3010; Q9966; 99152

== ENCOUNTER → 2020-05-21 | Outpatient (CLI) | payer BC ==
[2020-05-21 09:54] VITALS: BP 117/81; PULSE 102; RESP 16; TEMP 98.2
--- NOTE | 2020-05-21 10:21 | P.PAINPG ---
Subjective Progress Note Date: 05/21/20 Mr. Mike is a 54-year-old gentleman who presents today for follow-up. He is status post caudal epidural steroid injection 2 as well as facet blocks. He reports that nothing is really made a significant benefit. He continues to have back pain across his low back into both legs. He has a history of lumbar laminectomy 1998. He seen multiple surgeons do not think that any surgical intervention that would offer him significant benefit. Injections not made a big benefit. Pain medications have not been very effective. He denies any bowel or bladder incontinence. Denies any neck pain. Denies any pain in his upper back. Denies any overt weakness in his arms. He feels that his lower extremities are weak because he has not been moving around much. He finds that he is laying around most of the time. Since to be endemic began he's been trying to lose weight, he has lost about 40 pounds over the last 6 months via dietary restrictions. He reports he feels a little bit better and continues to work on that he'll low carbohydrate diet. Objective - Vital Signs Vital signs: Vital Signs Temp 98.2 F 05/21/20 09:48 Pulse 102 H 05/21/20 09:48 Resp 16 05/21/20 09:48 BP 117/81 05/21/20 09:48 Pulse Ox 95 05/21/20 09:48 Intake & Output 05/20/20 05/21/20 05/21/20 18:59 06:59 18:59 Weight 184.612 kg - Exam General: Awake and alert oriented 3 no distress, morbidly obese Respiratory exam: No audible wheezing no accessory muscle usage Cardiovascular exam: regular rate, palpable bilateral pulses, no lower extremity edema Abdominal exam: No distention nontender to palpation. Obese Cervical spine: Normal alignment, Spurling's negative, facet loading negative, Patient Care Representative strength is 5/5, macedo negative Lumbar spine: There is loss of lumbar lordosis. He has normal alignment. He is nontender to palpation. He has pain with all movements. Straight leg raise is positive bilaterally. Neuro exam: Normal sensation in bilateral upper extremities, deep tendon reflexes are 2+ bilateral upper extremities. Normal sensation in bilateral lower extremities. Deep tendon reflexes are 1+ in lower extremities Psych exam: Cooperative, appropriate mood Assessment and Plan Assessment: #1 lumbar postlaminectomy syndrome #2 lumbar radiculopathy #3 morbid obesity Plan: This point we discussed that steroid injections do not seem to offer him any benefit, pain medication is significantly better. Surgical intervention is not a good option. We discussed spinal cord stimulator as a potential use. We will work out the necessary prerequisites for a potential trial. We will attempt to have the trial done in the hospital. If we're unable to the hospital we'll send him to the [facility] in [place] to have that done. We also discussed that he is to have a psychological evaluation as part of the process. I've given him information for the [facility]. If we are able do in the hospital given a call PQRS Measure Charge Sheet Measure #130: Documentation of Current Meds in Medical Chart: Patient's medications documented in chart Measure #226: Tobacco Use: Screen & Cessation Intervention: Pt not a tobacco user Measure #111: Pneumonia Vaccination: Pneumococcal vaccine administered or previously received Measure #47: Advance Care Plan: Advance care planning discussed & documented, plan or surrogate given Measure #412: Opioid Treatment Agreement: No documentation of signed opioid treatment agreement Measure #408: Opioid Therapy Follow-up Evaluation: Patient had NO f/u eval minimum every 3 months during opioid therapy Measure #317: Preventitive Care & Scrn High Bld Press & F/U: Normal blood pressure, f/u not required Measure #128: Body Mass Index (BMI) Screening & Follow-up: BMI documented ABOVE normal parameters - f/u documented Measure #131: Pain Assessment & Follow-up: Pain positive & plan documented Measure #431: Unhealthy Alcohol Use Preventative Care & Scrn: Patient not identified as an unhealthy alcohol user PQRS Narrative: Smoking Status Never smoker Blood Pressure 117/81 Pain Intensity [Bilateral 5 Lower Back] Scale Used Numeric (1 - 10) Hx Alcohol Use (MH) No Home Medications: Ambulatory Orders HYDROcodone/APAP 5-325MG [[place] 5-325] 1 - 2 tab PO Q6HR PRN #12 tab 12/18/19 Levothyroxine Sodium [Synthroid] 50 mcg PO DAILY 02/16/20 Lisinopril-Hctz 20-12.5 mg [Zestoretic 20-12.5] 1 tab PO DAILY 02/16/20 Methylphenidate HCl [Ritalin] 20 mg PO BID 02/16/20 sitaGLIPtin [Januvia] 100 mg DAILY 02/16/20 Cyclobenzaprine [Flexeril] 10 mg PO TID PRN 02/23/20 FLUoxetine HCL [PROzac] 40 mg PO DAILY 04/10/20 Controlled Substance Measures - Controlled Substance Measures Is patient prescribed a controlled substance at discharge?: No
== END | disposition home or self-care (01) ==
LOC: PNWHC3 09:28
PROVIDERS: ATTEND Hospitalist
DX: M96.1 Postlaminectomy syndrome, not elsewhere classified (principal); M54.16 Radiculopathy, lumbar region; E66.01 Morbid (severe) obesity due to excess calories; Z79.891 Long term (current) use of opiate analgesic; Z79.890 Hormone replacement therapy; Z79.3 Long term (current) use of hormonal contraceptives; Z79.899 Other long term (current) drug therapy; Z79.84 Long term (current) use of oral hypoglycemic drugs
CPT/HCPCS: 99211

== ENCOUNTER → 2020-08-21 | Outpatient (CLI) | payer BC ==
--- NOTE | 2020-08-21 13:43 | XR ---
EXAMINATION TYPE: XR thoracic spine 2V, XR lumbar spine 2 or 3V DATE OF EXAM: 08/21/2020 CLINICAL HISTORY: pain TECHNIQUE: Frontal, lateral, and swimmer's view of thoracic spine are obtained. 3 views of the lumba r spine also submitted. COMPARISON: None. FINDINGS: Thoracic spine show satisfactory alignment without evidence of acute fracture or dislocatio n. Vertebral body heights are preserved. Moderate degenerative disc space narrowing and spondylosis. Stimulator tip is noted at the T9-10 level and T10-T11 level. Stimulator enters the T12-L1 level. Visualized ribs are unremarkable. Multilevel degenerative disc space narrowing and spondylosis lumb ar spine with facet joint arthropathy. IMPRESSION: Stimulator as noted.
== END | disposition home or self-care (01) ==
LOC: RADXRMAIN 12:55
PROVIDERS: ATTEND Hospitalist
DX: Z45.42 Encounter for adjustment and management of neurostimulator (principal)
CPT/HCPCS: 72070; 72100

== ENCOUNTER → 2020-08-23 | Outpatient (CLI) | payer BC ==
[2020-08-23 12:03] VITALS: BP 108/69; PULSE 101; RESP 20
--- NOTE | 2020-08-23 12:30 | P.PN ---
Progress Note - Text Progress Note Date: 08/23/20 The patient is here today for removal of spinal cord stimulator leads which were placed at [facility]. The patient did not get good pain relief after the spinal cord stimulation trial. There was question about lead and right after the procedure and that's why Dr. Pittman will try to do the trial one more time. This was removed with no issues and intact tips. ChloraPrep was used to clean the area of the skin entry site after removal of the leads and then a Band-Aid was placed. The patient will follow up with the clinic in a few weeks.
== END | disposition home or self-care (01) ==
LOC: PNWHC3 11:24
PROVIDERS: ATTEND Anesthesiology
DX: Z46.2 Encounter for fitting and adjustment of other devices related to nervous system and special senses (principal)
CPT/HCPCS: 99211

== ENCOUNTER → 2020-10-10 | Outpatient (CLI) | payer BC ==
[2020-10-10 14:13] VITALS: BP 119/87; PULSE 83; RESP 16; TEMP 98.3
--- NOTE | 2020-10-10 14:37 | P.PCN ---
Date of Procedure: 10/10/20 Procedure(s) Performed: This is 55 years old male, with a history of chronic severe low back pain he is diagnosed with postlaminectomy pain syndrome lumbar area, and lumbar spondylosis with lumbar facet arthropathy, patient had caudal epidural steroid injection with lysis of epidural adhesions he had no benefit from it, and we did diagnostic medial branch block lumbar area patient had negative results, and recently patient had a spinal cord stimulator trial, which was done last week at [facility] patient here today to have the spinal cord stimulator leads removed, patient reported that he had 0 benefits from the spinal cord stimulator, he was not interested in pursuing the permanent implant, and today under strict sterile technique ,I was able to remove the spinal cord stimulator leads 2 Leads were intact, the skin was cleane,there is no erythema, and no discharge, Band-Aid applied to the leads entery points, patient tolerated the procedure well without any complications, patient will follow up in the pain clinic when necessary,
== END ==
LOC: PNWHC3 13:39
PROVIDERS: ATTEND Specialist
DX: M96.1 Postlaminectomy syndrome, not elsewhere classified (principal); M47.816 Spondylosis without myelopathy or radiculopathy, lumbar region
CPT/HCPCS: 99212